=== PATIENT | male | born 1945 | race Caucasian/White ===

== ENCOUNTER → 2016-06-28 | Outpatient (CLI) | payer OTHER, MEDICARE | LOC: BHFA 09:30 | PROVIDERS: ATTEND Internal Medicine Cardiovascular Disease | DX: I25.10 Atherosclerotic heart disease of native coronary artery without angina pectoris (principal); E78.00 Pure hypercholesterolemia, unspecified; I47.2 Ventricular tachycardia ==

== ENCOUNTER 2018-05-23 12:06 | Observation (INO) | payer OTHER, MEDICARE ==
[2018-05-23] MEDS ORDERED: BACITRACIN IRRIGATION/NS 50,000 UNITS/1,000 ML BTL IRR ONE (12:15)
[2018-05-23] MEDS ORDERED: ceFAZolin 2 GM/DEXTROSE 100 ML IV ONE (12:15)
[2018-05-23] MEDS ORDERED: NS 1,000 ML IV ONE (12:15)
[2018-05-23 12:49] LABS: PLATELET COUNT 217 10^3/uL (150-400)
[2018-05-23 13:00] LABS: INR 0.99 (0.83-1.16); PROTIME(PATIENT) 13.3 SEC (12.0-15.0)
--- NOTE | 2018-05-23 13:07 | CPEKG ---
Test Reason : OPEN Blood Pressure : / mmHG Vent. Rate : 058 BPM Atrial Rate : 060 BPM P-R Int : 144 ms QRS Dur : 127 ms QT Int : 470 ms P-R-T Axes : -40 -45 043 degrees QTc Int : 462 ms Atrial-paced complexes Left bundle branch block Confirmed by Alexis Hanson ([id number]) on 05/23/2018 1:07:14 PM Referred By: Jimmy Morel Confirmed By:Alexis Hanson
--- NOTE | 2018-05-23 13:38 | GHP ---
[f rep st] HISTORY AND PHYSICAL DATE OF ADMISSION: 05/23/2018 CHIEF COMPLAINT: AICD beeping, with interrogation done today showing fractured RV AICD lead. HISTORY OF PRESENT ILLNESS: The patient is a 72-year-old male with significant history that includes [id number] CAD based off cardiac catheterization in 2005, history of nonsustained VT, with remote AICD implantation, initial device implanted in 2005, most recent generator change February 08, 2013, and hypercholesteremia. Patient reports he has been in his normal state of health. Yesterday, he was picking up a large bottle of water, afterwards, during the night, he heard a beeping noise from his AICD. He called in to our office for evaluation and to discuss, and he was scheduled to undergo device check. This was performed this morning at our [place] office. With interrogation of the device, it showed high significant amount of noise, with high impedances, suggesting RV lead fracture. This was a [place] lead, which has been noted to have this in the past. Dr. Morel was consulted, and I was asked to go see the patient, in which he reported he had no adverse shocking from the device. He was brought over to the CVC, placed on continuous site monitor, and device therapy was turned off. He reports he has had no recent chest pain, pressure, shortness of breath, palpitations, lightheadedness, near syncope, or syncopal events. Reporting no symptoms suggestive of TIA or CVA. Reporting no recent fevers, chills, or night sweats, and denies of any therapeutic shocks from his AICD. PAST MEDICAL HISTORY: Includes: 1. CAD based off a cardiac catheterization in 2005, qmg-liio-acltgxua, 2. Nonsustained ventricular tachycardia. 3. Hypercholesteremia. PAST SURGERIES: Include coronary angiogram in 2005, AICD implantation in 2005, generator device change in February of 2013. FAMILY HISTORY: Positive for congestive heart failure, CVA and CT. SOCIAL HISTORY: He has 4 children. He is . He occasionally drinks alcohol. He is a former tobacco user. ALLERGIES: Nightshade plants. HOME MEDICATIONS: Include carvedilol 3.125 mg p.o. daily, aspirin 81 mg p.o. daily, glucosamine 500 mg p.o. daily, vitamin D3, 1000 units p.o. daily, vitamin E daily. REVIEW OF SYSTEMS: A 10-point review of systems done on patient, all negative except as mentioned above. PHYSICAL EXAMINATION: GENERAL APPEARANCE: Medium-built, well-groomed male. He is alert and oriented to person, place, time, and situation. Appears to be under no acute distress. CURRENT VITAL SIGNS: Blood pressure 112/78, heart rate of 62, respirations 16, saturating 97% on room air. HEENT: Head is normocephalic. Lips and tongue are pink and moist with no signs of cyanosis. Conjunctivae pink. NECK: Trachea is midline. +2 carotid pulses bilateral. No auscultated bruits. No jugular vein distention. RESPIRATORY: Lungs are clear to auscultation. No rhonchi, rales or wheezes. No accessory muscle use. No intercostal muscle retraction noted. CARDIAC: Regular rate, regular rhythm, S1, S2. No S3, S4, gallops, rubs or murmurs noted. ABDOMEN: Soft, nontender. Bowel sounds x4 quadrants. No organomegaly , no palpable masses. SKIN: [place], warm, dry. No cyanosis, no clubbing, no peripheral edema. VASCULAR: +2 carotids bilateral, +2 radials bilateral, +2 dorsal pedal and posterior tibial pulses bilateral. STUDIES: Device interrogation today showing RV lead fracture with high impedance, with high frequency of noise. Electrocardiogram showing AV paced rhythm. LABORATORIES: Showing WBC of 5.49, hemoglobin of 14.8, hematocrit of 43.6, platelet count of 217. Currently, INR and chemistry panel pending. ASSESSMENT AND PLAN: 1. Fractured RV AICD lead: Patient with known history of Arthur with known history of frequent fracturing. Recent device interrogation showing frequent noise. Patient has, thankfully, not had inappropriate therapy delivered. Patient has been brought over to CVC, placed on continuous cardiac monitoring. His AICD has been turned off to deliver therapy. We will plan on implantation of new lead later this afternoon to be done by Dr. Morel. This is being done urgently due to the patient's history of ventricular tachycardia, but the device therapy needing to be turned off to prevent inappropriate shock. The patient verbalizes understanding of the procedure, and is wanting to proceed. 2. History of coronary artery disease: Patient with noted history of non-flow- limiting coronary artery disease. Reports no chest pain, pressure, or symptoms suggesting ischemia. Currently, on aspirin therapy at 81 mg p.o. daily. Has declined statin therapy in the past. No changes at this time. 3. Nonsustained ventricular tachycardia. Patient with history of AICD, lead revision as above. 4. Code status: Patient is a full code. 5. Deep venous thrombosis prophylaxis: Patient is considered a moderate risk, but with needing surgery, we will hold off on anticoagulation at this time, but will plan for him to postoperatively be placed in TOM hose, and if necessary, and SCD. We will plan on early mobilization. /[id number]/MODL MTDD
[2018-05-23] MEDS ORDERED: ONDANSETRON DISINTEGRATING 4 MG TAB PO PRN (15:39)
[2018-05-23] MEDS ORDERED: ONDANSETRON 4 MG/2 ML VIAL IVP PRN (15:39)
[2018-05-23] MEDS ORDERED: ATROPINE SULFATE 1 MG/10 ML SYR IVP PRN (17:30)
[2018-05-24] MEDS ORDERED: ceFAZolin 2 GM/DEXTROSE 100 ML IV ONE (06:00)
[2018-05-24] MEDS ORDERED: BACITRACIN IRRIGATION/NS 50,000 UNITS/1,000 ML BTL IRR ONE (06:00)
[2018-05-24] MEDS ORDERED: NS 1,000 ML IV ONE (06:00)
[2018-05-24] MEDS ORDERED: LIDOCAINE 1% 300 MG/30 ML SDV ONE (08:39)
[2018-05-24] MEDS ORDERED: LIDO/EPI 1% **for epidural** 30 ML SDV ONE (08:39)
[2018-05-24] MEDS ORDERED: IOPAMIDOL (ISOVUE-300) 50 ML VIAL ONE (08:39)
[2018-05-24] MEDS ORDERED: MIDAZOLAM 2 MG/2 ML VIAL ONE (08:39)
[2018-05-24] MEDS ORDERED: BUPIVACAINE 0.5% 30 ML SDV ONE (08:39)
[2018-05-24] MEDS ORDERED: fentaNYL 100 MCG/2 ML INJ ONE (08:39)
--- NOTE | 2018-05-24 09:25 | PDPROPOC ---
Sedation Plan of Care Sedation Plan of Care: vital signs stable, mental status noted, patient educated of risks, benefits, alternatives, patient can tolerate sedation ASA Classification: ASA 3 Planned drugs: fentanyl, midazolam Mallampati Score: Class 2 Mallampati Reference Image: Patient passed 3-3-2 rule?: Yes
[2018-05-24] MEDS ORDERED: ETOMIDATE 40 MG/20 ML INJ ONE (09:43)
--- NOTE | 2018-05-24 11:33 | EPPROC ---
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 status was confirmed, the region of the left subclavicular fossa was cleaned, prepped and draped in a sterile fashion. Approximately 30 mL of 1% lidocaine was utilized for local anesthesia. The skin was sharply incised with a #10 blade. Electrocautery and local pressure were used for hemostasis. Sharp and blunt dissection was used to access the pacemaker pocket overlying the pectoralis major fascia. The pocket was thoroughly flushed and checked for bleeding. Hemostasis was established and the old device was removed from the pocket. The atrial and ventricular lead set screws were loosened. The previous RV lead was disconnected from the generator and capped. The new RV lead serial number was checked and placed in the upper pole lead housing of the new pulse generator and set screw firmly applied. Ventricular lead threshold was tested and found to be 0.5 V at 0.4 ms width. R-wave amplitude was measured at 6.5 mV. Lead impedance was 589 Ohms. The single defibrillator coil was placed in the lower pole shock lead housing and the set screw applied. The upper pole chock lead housing was plugged with the provided Medtronic plug and the set screw was applied. The device was placed in the pocket and sutured in place with #0 Silk. The skin was closed with a 3-layered 3-0 Vicryl, 2-0 Vicryl and Stapled repair with excellent wound edge opposition and hemostasis documented.The patient returned to the post cath recovery unit in good and stable condition where a stat postoperative chest x-ray and EKG will be obtained. FINAL IMPRESSION: Successful elective replacement of the RV Arthur lead. Patient Problems: Problems Problem Status Onset Implanted defibrillator electrode lead fracture Acute
--- NOTE | 2018-05-24 11:57 | ASMTCMCOM ---
CM Note CM Note Notes: Pt is a 72 y/o man admitted for interrogation showing a fractured RV AICD lead. Pt will most likely d/c independent when medically stable. No therapies ordered at this time. CM available for changes. Plan: Independent Date Signed: 05/24/2018 11:57 AM Electronically Signed By:DEEPALI Quiroz
[2018-05-24] MEDS: ASPIRIN 81 MG CHEWABLE TAB PO SCH (13:05)
[2018-05-24] MEDS: GLUCOSAMINE/CHONDROITIN CAP PO SCH (13:05)
[2018-05-24] MEDS: CHOLECALCIFEROL VIT D3 2,000 UNITS TAB/CAP PO SCH (13:06)
[2018-05-24] MEDS: CARVEDILOL 3.125 MG TAB PO SCH (13:06)
--- NOTE | 2018-05-24 15:03 | CPEKG ---
Test Reason : OPEN Blood Pressure : / mmHG Vent. Rate : 060 BPM Atrial Rate : 060 BPM P-R Int : 148 ms QRS Dur : 128 ms QT Int : 438 ms P-R-T Axes : -37 -45 038 degrees QTc Int : 438 ms Sinus rhythm Left bundle branch block Confirmed by Alexis Hanson ([id number]) on 05/24/2018 3:03:14 PM Referred By: Jimmy Morel Confirmed By:Alexis Hanson
[2018-05-25 07:28] VITALS: BP 107/63
[2018-05-25] MEDS ORDERED: ACETAMINOPHEN 325 MG TAB PO PRN (08:58)
[2018-05-25] MEDS: GLUCOSAMINE/CHONDROITIN CAP PO SCH (09:26)
[2018-05-25] MEDS: CARVEDILOL 3.125 MG TAB PO SCH (09:27)
[2018-05-25] MEDS: ASPIRIN 81 MG CHEWABLE TAB PO SCH (09:27)
[2018-05-25] MEDS: CHOLECALCIFEROL VIT D3 2,000 UNITS TAB/CAP PO SCH (09:27)
--- NOTE | 2018-05-25 10:09 | GDS ---
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 Morel ADMISSION DIAGNOSES: 1. Right ventricle automatic implantable cardioverter defibrillator lead fracture. 2. History of nonsustained ventricular tachycardia. 3. Non flow-limiting coronary artery disease. DISCHARGE DIAGNOSES: 1. Status post right ventricle automatic implantable cardioverter defibrillator lead revision with M edtronic lead. 2. Nonsustained ventricular tachycardia. 3. Coronary artery disease. PROCEDURES PERFORMED DURING HOSPITALIZATION: 1. Electrocardiogram. 2. RV lead for AICD revision with new Medtronic lead implantation. 3. Chest x-ray. BRIEF HISTORY: Please see H and P. Briefly, the patient is a 72-year-old male with history of non-s ustained VT, non flow-limiting CAD with remote AICD implantation. Patient reporting on May 22 of lifting a heavy bottle of water, following he had noticed that his AICD was beeping. He came int o our office on May 23, which interrogation of his device showed that he had a significant tico unt of noise and high impedances suggesting RV lead fracture. [facility] to concerns about potentially inappropriate AICD shock from inappropriate therapy. HOSPITAL COURSE: Patient was admitted to [facility], where he was placed on continuous telemetry. At that point, his AICD was set to not deliver therapy. Soon after, he was admitted to the PCU for overnight observation where he remained AV paced with no malignant arrhythmias. On the , he was taken to the cardiac catheterization lab where there Dr. Morel implanted a new Medtronic single coil RV lead into the right ventricle. The old RV lead, which was a Arthur, was capped. New lead and existing r ight atrial lead were attached to his existing generator, and the pocket was revised and closed. No apparent complications. The patient was taken back to the PCU overnight for overnight observation. Today, continuous cardiac monitoring showing that he maintained AV paced. He has had no malignant ar rhythmias or pauses. The patient reports no chest pain, pressure, or symptoms suggesting of ischemia . He has been up and walking the unit without difficulties. PHYSICAL EXAMINATION: GENERAL: Today, a tall, well-groomed, male. He is alert and orient ed to person, place, time, and situation, appears to be under no acute distress. VITAL SIGNS: [facility] nt: Blood pressure of 107/63, heart rate of 74, respirations 13, saturating 95% on room air. Temper ature 36.3 degrees Celsius. HEENT: Head is normocephalic. Lips and tongue are pink and moist with no signs of cyanosis. Conjunctivae pink. NECK: Trachea is midline, +2 carotid pulses bilateral. N o auscultated bruits. No jugular vein distention. RESPIRATORY: Lungs are clear to auscultation. N o rhonchi, rales, or wheezes. No accessory muscle use. No intercostal muscle retraction noted. CAR DIAC: Regular rate, regular rhythm, S1, S2. No S3, S4, gallops, rubs, or murmurs noted. ABDOMEN: Soft, nontender. Bowel sounds x4 quadrants. No organomegaly. No palpable masses. SKIN: [place], [place], dry. Insertion site, left anterior chest, incision intact with daniel, mildly swollen with no re dness, swelling, drainage, ecchymosis, or notable hematoma. EXTREMITIES: No cyanosis. No clubbing. No peripheral edema. VASCULAR: +2 carotids bilateral, +2 radials bilateral, +1 dorsal pedal and p osterior tibial pulses bilateral. LABORATORY STUDIES: On admission showing WBC of 5.49, hemoglobin 14.8, hematocrit of 43.6, platelet count of 217. INR was 0.99. On the , BMP panel: Sodium was 138, potassium is 5.1, chloride 108 , CO2 26, BUN was 26, creatinine 1.0, glucose 95, calcium 8.0. STUDIES: Electrocardiogram on admission showing AV paced rhythm. Lead revision procedure as mentioned above. Post-procedure chest x-ray showing new RV lead placement, no pneumothorax, no acute cardiopulmonary p rocess. Currently pending a.m. chest x-ray postop day 1. DISCHARGE DISPOSITION: Patient will be discharged home in stable condition. He is under activity re strictions of not lifting more than 10 pounds with the left arm for the next 6 weeks , not lifting le ft arm higher than shoulder height for the next 6 weeks. DISCHARGE MEDICATIONS: Please see in discharge medication reconciliation sheet. DISCHARGE INSTRUCTIONS: Post AICD RV lead revision discharge instructions went over with the patient , including monitoring for signs of infection, bleeding precautions, activity restrictions. [facility] has been set up to have a device check done in 1 week's time , at that point, his daniel will be removed. The patient has a followup appointment with Dr. Morel in 2 weeks. The patient has been t old that if any problems or concerns come up post discharge, he is to notify our office or return to the clinic or return to the hospital. Total time spent on discharge, greater than 30 minutes. /[id number]/MODL
== END 2018-05-25 12:07 | disposition home or self-care (01) ==
LOC: FCATH 12:06 → F2W 15:25
PROVIDERS: ADMIT Internal Medicine Cardiovascular Disease; ATTEND Internal Medicine Cardiovascular Disease
PROC: 02HK0KZ Insertion of Defibrillator Lead into Right Ventricle, Open Approach (ICD-10-PCS; principal; 2018-05-23)
DX: T82.110A Breakdown (mechanical) of cardiac electrode, initial encounter (principal); I47.2 Ventricular tachycardia; I25.10 Atherosclerotic heart disease of native coronary artery without angina pectoris; Z95.810 Presence of automatic (implantable) cardiac defibrillator; E78.00 Pure hypercholesterolemia, unspecified
CPT/HCPCS: 33216; 71045; 71046; 93005; C1777; G0378; G0379; J0690; J2250; J3010; Q9967

== ENCOUNTER → 2018-09-28 | Outpatient (CLI) | payer OTHER, MEDICARE | LOC: FIMAGING 15:04 ==